=== PATIENT | female | born 1960 | race Caucasian/White ===

== ENCOUNTER 2018-07-14 10:22 | Emergency (ER) | payer OTHER ==
[~2018-07-14] VITALS: Ht 170.2 cm; Wt 117.9 kg
--- OUTSIDE RECORDS SUMMARY | ~2018-07-14 | XMS | Encounter Summary ---
Demographics + + + | Address | [address] | | | [place] [address] | + + + | Home Phone | | + + + | Preferred Language | Unknown | + + + | Marital Status | | + + + | Hindu Affiliation | Unknown | + + + | Race | Unknown | + + + | Ethnic Group | Unknown | + + + Author + + + | Author | [facility] | + + + | Organization | [facility] | + + + | Address | Unknown | + + + | Phone | Unavailable | + + + Support + + + + + | Name | Relationship | Address | Phone | + + + + + | Arden Causey | ECON | [address] | | | | | [place] | | | | | [address] | | + + + + + Care Team Providers + +------+ + | Care Data Services Developer Name | Role | Phone | + +------+ + | Evan Degroot | PCP | | + +------+ + Reason for Visit + + + | Reason | Comments | + + + | Medication Refill | | + + + Encounter Details +--------+--------+ + + + | Date | Type | Department | Care Team | Description | +--------+--------+ + + + | 05/12/ | Refill | [facility] [place] | Jami Perez MA | Medication Refill | | 2019 | | [facility] [place] | | | | | | [address] [facility] [address] | | | | | | [facility] [address] | | | | | | [place] [address] | | | | | | [phone] | | | +--------+--------+ + + + Social History + + + +--------+ + | Tobacco Use | Types | Packs/Day | Years | Date | | | | | Used | | + + + +--------+ + | Former Smoker | Cigarettes | 0.75 | 5 | Quit: 03/10/1994 | + + + +--------+ + + +---+---+---+ | Smokeless Tobacco: | | | | | Never Used | | | | + +---+---+---+ + + +---------+ + | Alcohol Use | Drinks/We | oz/Week | Comments | | | ek | | | + + +---------+ + | No | 0 | 0.0 | rarely | | | Standard | | | | | drinks or | | | | | | | | | | equivalen | | | | | t | | | + + +---------+ + + + + | Sex Assigned at | Date Recorded | | | | + + + | Not on file | | + + + as of this encounter Plan of Treatment Not on fileas of this encounter Visit Diagnoses Not on filein this encounter"
--- OUTSIDE RECORDS SUMMARY | ~2018-07-14 | XMS | Clinical Summary ---
Demographics + + + | Address | [address] | | | [place] [address] | + + + | Home Phone | | + + + | Preferred Language | Unknown | + + + | Marital Status | | + + + | Confucianism Affiliation | Unknown | + + + | Race | Unknown | + + + | Ethnic Group | Unknown | + + + Author + + + | Author | [facility] | | | and [place] | + + + | Organization | [facility] | | | and [place] | + + + | Address | Unknown | + + + | Phone | Unavailable | + + + Support + + + + + | Name | Relationship | Address | Phone | + + + + + | Arden Causey | ECON | [address] | | | | | [place] | | | | | [address] | | + + + + + Care Team Providers + +------+ + | Care Carton Making Machine Operator Name | Role | Phone | + +------+ + | Evan Degroot NP | PP | | + +------+ + Allergies + + + + + + | Active Allergy | Reactions | Severity | Noted | Comments | | | | | Date | | + + + + + + | Adhesive & Tape | Rash | Low | 08/28/19 | Rash & blisters | | | | | 17 | from ECG electrodes | + + + + + + | Latex | Sensitivity | | 01/02/20 | | | | | | 17 | | + + + + + + | Lisinopril | Other (See Comments) | Low | 08/05/19 | Cough | | | | | 13 | | + + + + + + Medications + + + +---------+------+------+-------+ | Medication | Sig | Dispensed | Refills | Star | End | Statu | | | | | | t | Date | s | | | | | | Date | | | + + + +---------+------+------+-------+ | atorvaSTATin | Take 80 mg by mouth | | 0 | | | Activ | | (LIPITOR) 80 MG | Daily. | | | | | e | | tablet | | | | | | | + + + +---------+------+------+-------+ | nitroglycerin | Place 0.4 mg under | | 0 | | | Activ | | (NITROSTAT) 0.4 mg | the tongue every 5 | | | | | e | | SL tablet | minutes as needed. | | | | | | + + + +---------+------+------+-------+ | metoprolol | Take 25 mg by mouth | | 0 | | | Activ | | tartrate (LOPRESSOR) | 2 times daily. | | | | | e | | 25 mg tablet | | | | | | | + + + +---------+------+------+-------+ | levothyroxine | Take 100 mcg by | | 0 | | | Activ | | (SYNTHROID, | mouth every morning | | | | | e | | LEVOTHROID) 100 mcg | (before breakfast). | | | | | | | tablet | | | | | | | + + + +---------+------+------+-------+ | aspirin 81 mg EC | Take 81 mg by mouth | | 0 | | | Activ | | tablet | Daily. | | | | | e | + + + +---------+------+------+-------+ | clopidogrel | Take 75 mg by mouth | | 0 | | | Activ | | (PLAVIX) 75 mg | Daily. | | | | | e | | tablet | | | | | | | + + + +---------+------+------+-------+ Active Problems + + + | Problem | Noted Date | + + + | Sleep apnea - No CPAP use | 08/28/2016 | + + + + + | Overview: no CPAP | + + + + + | Hemorrhage of gastrointestinal tract, unspecified | 08/27/2016 | + + + | H/O Hysterectomy | 08/27/2016 | + + + | H/O Coronary artery STENT placement | 08/27/2016 | + + + | H/O Coronary angiogram | 08/27/2016 | + + + | Beta Jennifer - Daily Use | 08/27/2016 | + + + | Anticoagulant long-term use - PLAVIX | 08/27/2016 | + + + | Hypertension | | + + + | Shortness of breath | | + + + | Hypothyroidism - on Replacement Therapy | | + + + | Sedative, hypnotic or anxiolytic dependence, unspecified | | + + + + + | Overview: ICD-10 Record update | + + + +---+ | Dysmetabolic syndrome X | | + +---+ | Depressive disorder, not elsewhere classified | | + +---+ + + | Overview: REBA [id number] R2 | + + + +---+ | Gastro-esophageal reflux GERD | | + +---+ | 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 | | + +---+ + + | Overview: ICD-10 Record update | + + + +---+ | Other and unspecified hyperlipidemia | | + +---+ | Class II, BMI 35-39.9 | | + +---+ + + | Overview: REBA [id number] Decision | + + + +---+ | Lumbago | | + +---+ | Osteoarthrosis, unspecified whether generalized or localized, | | | lower leg | | + +---+ + + | Overview: ICD-10 Record update | | Problem list shift manager utility | + + + +---+ | Coronary atherosclerosis of unspecified type of vessel, [place] or | | | graft | | + +---+ + + | Overview: ICD-10 Record update | + + + +---+ | CAD (coronary artery disease) | | + +---+ + + | Overview: S/P Percutaneous Transluminal Coronary Angioplasty | | and Stents- Dr. England 10/09/2005L 10/20/06, LVEF 65%Stress | | 06/07/08, LVEF by gated SPECT 68%[facility] 06/13/08, LVEF 65%ECHO | | 07/28/12 LVEF 70% | |ECHO 07/28/12 LVEF 70% | + + Family History + +-------+ + + | Relation | Name | Status | Comments | + +-------+ + + | | Melissa | Alive | | + +-------+ + + | | Scott | Alive | | + +-------+ + + | Father | | | | + +-------+ + + | Mother | | | | + +-------+ + + | Sister | Meghan | Alive | | + +-------+ + + | Sister | Renetta | Alive | | + +-------+ + + Social History + +-------+ +--------+ + | Tobacco Use | Types | Packs/Day | Years | Date | | | | | Used | | + +-------+ +--------+ + | Former Smoker | | 0.5 | | Quit: 03/10/1996 | + +-------+ +--------+ + + +---+---+---+ | Smokeless Tobacco: | | | | | Never Used | | | | + +---+---+---+ + + | Comments: smoked off and on | + + + + +---------+ + | Alcohol Use | Drinks/We | oz/Week | Comments | | | ek | | | + + +---------+ + | Yes | | | every 3-4 months | + + +---------+ + + + + | Sex Assigned at | Date Recorded | | | | + + + | Not on file | | + + + + + + + | Job Start Date | Occupation | Industry | + + + + | Not on file | Not on file | Not on file | + + + + + + + + | Travel History | Travel Start | Travel End | + + + + + + | No recent travel history available. | + + Last Filed Vital Signs + + + + | Vital Sign | Reading | Time Taken | + + + + | Blood Pressure | 115/67 | 01/01/2017 0936 PDT | + + + + | Pulse | 71 | 01/01/2017935 PDT | + + + + | Temperature | 36.3 C (97.3 F) | 01/01/2017908 PDT | + + + + | Respiratory Rate | 16 | 01/01/2017935 PDT | + + + + | Oxygen Saturation | 100% | 01/01/2017935 PDT | + + + + | Inhaled Oxygen | - | - | | Concentration | | | + + + + | Weight | 118 kg (260 lb 2.3 | 01/01/2017730 PDT | | | oz) | | + + + + | Height | 170.2 cm (5' 7") | 01/01/2017730 PDT | + + + + | Body Mass Index | 40.74 | 01/01/2017730 PDT | + + + + Plan of Treatment + + + + + | Health Maintenance | Due Date | Last Done | Comments | + + + + + | Hepatitis C | | | | | Screening | 9 | | | + + + + + | Vaccine: | | | | | Dtap/Tdap/Td (1 - | 8 | | | | Tdap) | | | | + + + + + | Vaccine: | | | | | Pneumococcal 19-64 | 8 | | | | (PPSV23 only) Medium | | | | | Risk (1 of 1 - | | | | | PPSV23) | | | | + + + + + | Breast Cancer | | | | | Screening (Ages | 9 | | | | 50-74) | | | | + + + + + | Colorectal Cancer | | | | | Screening | 9 | | | | (Colonoscopy) | | | | + + + + + | Vaccine: Zoster (1 | | | | | of 2) | 9 | | | + + + + + | Vaccine: Influenza | | | | | (Season Ended) | 9 | | | + + + + + Results Not on filefrom Last 3 Months Insurance +---------+--------+ +--------+ +---------+--------+ | Payer | Benefi | Subscriber | Effect | Phone | Address | Type | | | t Plan | ID | sadia | | | | | | / | | Dates | | | | | | Group | | | | | | +---------+--------+ +--------+ +---------+--------+ | | [employer] | [id number] | 03/10/19 | [phone] | | Indemn | | | E WEST | | 18-Pre | 0 | | ity | | | HNFS | | sent | | | | +---------+--------+ +--------+ +---------+--------+ + +--------+ +--------+ + + | Guarantor Name | Accoun | Relation to | Date | Phone | Billing Address | | | t Type | Patient | of | | | | | | | | | | + +--------+ +--------+ + + | Alejandra Causey | Person | Self [birth year] | [phone] | | [address] | | [phone] | [phone] | [place] | | | [place] | | | [address] (Home) | [address] | + +--------+ +--------+ + + Advance Directives Patient has advance care planning documents on file. For more information, please contact:[facility] [place] [address]
--- OUTSIDE RECORDS SUMMARY | ~2018-07-14 | XMS | Clinical Summary ---
Demographics + + + | Address | [address] | | | [place] [address] | + + + | Home Phone | | + + + | Preferred Language | Unknown | + + + | Marital Status | | + + + | Hinduism Affiliation | Unknown | + + + | Race | Unknown | + + + | Ethnic Group | Unknown | + + + Author + + + | Author | [facility] | | | and [place] | + + + | Organization | [facility] | | | and [...] [place] | | | | | [address] | | + + + + + Care Team Providers + +------+ + | Care Coat Hanger Shaper Machine Operator Name | Role | Phone [...] 08/27/2016 | + + + | Beta Jenniefr - Daily Use | 08/27/2016 | + [...] + +---+ + + | Overview: REBA [id number] R2 | + + + +---+ | Gastro-esophageal reflux GERD | | + +---+ | 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 | | + +---+ + + | Overview: ICD-10 Record update | + + + +---+ | Other and unspecified hyperlipidemia | | + +---+ | Class II, BMI 35-39.9 | | + +---+ + + | Overview: REBA [id number] Decision | + + + +---+ | Lumbago | | + +---+ | Osteoarthrosis, unspecified whether generalized or localized, | | | lower leg | | + +---+ + + | Overview: ICD-10 Record update | | Problem list senior care provider utility | + + + +---+ | Coronary atherosclerosis of unspecified type of vessel, [place] or | | | graft | | + +---+ + + | Overview: ICD-10 Record update | + + + +---+ | CAD (coronary artery disease) | | + +---+ + + | Overview: S/P Percutaneous Transluminal Coronary Angioplasty | | and Stents- Dr. England 10/09/2005L 10/20/06, LVEF 65%Stress | | 06/07/08, LVEF by gated SPECT 68%[facility] 06/13/08, LVEF 65%ECHO | | 07/28/12 [...] +---------+--------+ +--------+ +---------+--------+ | | [employer] | [id number] | 03/10/19 | [phone] | | Indemn [...] [place] | | | [address] (Home) | [address] | + +--------+ +--------+ + + Advance Directives Patient has advance care planning documents on file. For more information, please contact:[facility] [place] [address]
--- OUTSIDE RECORDS SUMMARY | ~2018-07-14 | XMS | Encounter Summary ---
Demographics + + + | Address | [address] | | | [place] [address] | + + + | Home Phone | | + + + | Preferred Language | Unknown | + + + | Marital Status | | + + + | Samaritan Affiliation | Unknown | + + + | Race | Unknown | + + + | Ethnic Group | Unknown | + + + Author + + + | Author | [facility] | + + + | Organization | [facility] | + + + | Address | Unknown | + + + | Phone | Unavailable | + + + Support + + + + + | Name | Relationship | Address | Phone | + + + + + | Arden Causey | ECON | [address] | | | | | [place] | | | | | [address] | | + + + + + Care Team Providers + +------+ + | Care Construction Worker Name | Role | Phone | + [...] + | 05/12/ | Refill | [facility] [place] | Jami Perez MA | Medication Refill | | 2019 | | [facility] [place] | | | | | | [address] [facility] [address] | | | | | | [facility] [address] | | | | | | [place] [address] | | | | | | [phone] | | | +--------+--------+ + + + [...]
--- OUTSIDE RECORDS SUMMARY | ~2018-07-14 | XMS ---
Demographics + + + | Address | [address] | | | [place] [address] | + + + | Preferred Language | Unknown | + + + | Marital Status | Unknown | + + + | Scientology Affiliation | Unknown | + + + | Race | Unknown | + + + | Ethnic Group | Unknown | + + + Author + + + | Author | [facility] | + + + | Organization | [facility] | + + + | Address | [address] | | | [place] [address] | + + + | Phone | | + + + Care Team Providers + + + + | Care Buffer Chrome Name | Role | Phone | + + + + Unavailable | Unavailable | + + + + PROBLEMS +---------+ + + +--------+ + + | Type | Condition | ICD9-CM | [id number] | Onset | Condition | SNOMED | | | | Code | Code | Dates | Status | Code | +---------+ + + +--------+ + + | Problem | Cellulitis | 682.6 | | | Active | 73314185 | | | of knee | | | | | | +---------+ + + +--------+ + + | Problem | 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.39 | | | Active | 89670704 | | | tsiha | | | | | | | | disease | | | | | | +---------+ + + +--------+ + + | Problem | Cholelithi | 574.20 | | | Active | 34417961 | | | asis | | | | | | | | without | | | | | | | | obstructio | | | | | | | | n | | | | | | +---------+ + + +--------+ + + | Problem | Gastrointe | | K92.2 | | Active | 32635660 | | | stinal | | | | | | | | hemorrhage | | | | | | | | , | | | | | | | | unspecifie | | | | | | | | d | | | | | | +---------+ + + +--------+ + + | Problem | Contusion | 924.11 | | | Active | 69854346 | | | of knee | | | | | | +---------+ + + +--------+ + + | Problem | Hematochez | K92.1 | | | Active | [id number] | | | ia | | | | | | +---------+ + + +--------+ + + | Problem | Coronary | | I25.10 | | Active | 10533990 | | | artery | | | | | | | | disease | | | | | | +---------+ + + +--------+ + + | Problem | Hypothyroi | | E03.9 | | Active | 22105073 | | | dism | | | | | | +---------+ + + +--------+ + + | Problem | Hyperlipid | | E78.5 | | Active | 54464874 | | | emia | | | | | | +---------+ + + +--------+ + + | Problem | Hypertensi | | I10 | | Active | 75937873 | | | on | | | | | | +---------+ + + +--------+ + + | Problem | Status | | Z95.5 | | Active | [id number] | | | post | | | | | | | | coronary | | | | | | | | artery | | | | | | | | stent | | | | | | | | placement | | | | | | +---------+ + + +--------+ + + ALLERGIES + + + + +--------+ | Substance | Reaction | Event Type | Date | Status | + + + + +--------+ | Lisinopril | Cough | Drug Allergy | Aug, | Active | + + + + +--------+ | Kiwi | tight throat | Non Drug | Aug, | Active | | | | Allergy | | | + + + + +--------+ SOCIAL HISTORY No smoking Hx information available PLAN OF CARE + +---------+ | Activity | Details | + +---------+ +---+ | | +---+ + + + | Follow Up | 3 Months Reason:null | + + + VITAL SIGNS + + + + | Height | 66 in | 2016-08-15 | + + + + | Weight | 243.0 lbs | 2016-08-15 | + + + + | BMI | 39.22 kg/m2 | 2016-08-15 | + + + + | Temperature | 98.5 degrees Fahrenheit | 2016-08-15 | + + + + | Heart Rate | 70 /min | 2016-08-15 | + + + + | Blood pressure systolic | 127 mm Hg | 2016-08-15 | + + + + | Blood pressure diastolic | 70 mm Hg | 2016-08-15 | + + + + MEDICATIONS + + + + + + + +--------+ | Medicati | Instruct | Dosage | Frequenc | Start | End Date | Duration | Status | | on | ions | | y | Date | | | | + + + + + + + +--------+ | Aspirin | Orally | 1 tablet | 12h | | | 30 | Active | | 81 MG | BID | | | | | day(s) | | + + + + + + + +--------+ | Plavix | Orally | 1 tablet | 24h | | | | Active | | 75 MG | Once a | | | | | | | | | day | | | | | | | + + + + + + + +--------+ | Lipitor | Orally | 1 tablet | 24h | | | | Active | | 80 MG | Once a | | | | | | | | | day | | | | | | | + + + + + + + +--------+ | Levothyr | Orally q | 1 tablet | | 01 Nov, | | 30 | Active | | oxine | AM on | | | 2016 | | day(s) | | | Sodium | empty | | | | | | | | 100 MCG | stomach | | | | | | | + + + + + + + +--------+ | Omeprazo | Orally | 1 | | | | 30 days | Active | | le 20 mg | Once a | capsule | | | | | | | | day PRN | | | | | | | + + + + + + + +--------+ | Metoprol | Orally | 1 tablet | 12h | | | | Active | | ol | Twice a | | | | | | | | Tartrate | day | | | | | | | | 25 MG | | | | | | | | + + + + + + + +--------+ RESULTS No Results PROCEDURES + + + + + | Procedure | Date Ordered | Related Diagnosis | Body Site | + + + + + | Est Level IV | August 15, 2016 | | | | Extended | | | | + + + + + | [facility] MED/CURRENT | August 15, 2016 | | | | MED MERGE | | | | + + + + + | DOC MEDS VERIFIED | August 15, 2016 | | | | W/PT OR RE | | | | + + + + + IMMUNIZATIONS No Known Immunizations"
--- OUTSIDE RECORDS SUMMARY | ~2018-07-14 | XMS | Clinical Summary ---
Demographics + + + | Address | [address] | | | [place] [address] | + + + | Home Phone | | + + + | Preferred Language | Unknown | + + + | Marital Status | | + + + | Roman Catholic Affiliation | Unknown | + + + | Race | Unknown | + + + | Ethnic Group | Unknown | + + + Author + + + | Author | [facility] | + + + | Organization | [facility] | + + + | Address | Unknown | + + + | Phone | Unavailable | + + + Support + + + + + | Name | Relationship | Address | Phone | + + + + + | Arden Causey | ECON | [address] | | | | | [place] | | | | | [address] | | + + + + + Care Team Providers + +------+ + | Care Poured Concrete Wall Technician Name | Role | Phone | + +------+ + | Evan Degroot | PP | | + +------+ + Allergies + + + + + + | Active Allergy | Reactions | Severity | Noted | Comments | | | | | Date | | + + + + + + | Adhesive Tape | Rash | Medium | 08/28/19 | Rash & blisters | | | | | 17 | from ECG electrodes | + + + + + + | Kiwi Extract | Itching | Medium | 08/08/19 | | | | | | 18 | | + + + + + + | Latex | Rash | Medium | 01/02/20 | | | | | | 17 | | + + + + + + | Lisinopril | Cough | Low | 04/23/19 | Cough | | | | | 17 | | + + + + + + Current Medications + + +--------+---------+------+------+-------+ | Prescription | Sig. | Disp. | Refills | Star | End | Statu | | | | | | t | Date | s | | | | | | Date | | | + + +--------+---------+------+------+-------+ | oxybutynin | Take 5 mg by mouth | | | | | Activ | | (DITROPAN) 5 MG | daily. | | | | | e | | tablet | | | | | | | + + +--------+---------+------+------+-------+ | pantoprazole | Take 20 mg by mouth | | | | | Activ | | (PROTONIX) 20 MG | 2 (two) times daily. | | | | | e | | tablet | | | | | | | + + +--------+---------+------+------+-------+ | clopidogrel | Take 1 tablet by | 30 | 11 | 07/10 | 07/10 | Activ | | (PLAVIX) 75 MG | mouth daily. | tablet | | 03/29 | 03/29 | e | | tabletIndications: | | | | 18 | 19 | | | Coronary artery | | | | | | | | disease involving | | | | | | | | [place] coronary | | | | | | | | artery of [place] | | | | | | | | heart with angina | | | | | | | | pectoris ([facility]) | | | | | | | + + +--------+---------+------+------+-------+ | nitroGLYCERIN | Place 1 tablet under | 20 | 3 | 07/10 | 07/10 | Activ | | (NITROSTAT) 0.4 MG | the tongue every 5 | tablet | | 03/29 | 03/29 | e | | SL tablet | (five) minutes as | | | 18 | 19 | | | | needed for Chest | | | | | | | | pain. | | | | | | + + +--------+---------+------+------+-------+ | aspirin 81 MG EC | Take 81 mg by mouth | | | | | Activ | | tablet | daily with | | | | | e | | | breakfast. | | | | | | + + +--------+---------+------+------+-------+ | levothyroxine | Take 137 mcg by | | | | | Activ | | (SYNTHROID) 137 MCG | mouth every morning | | | | | e | | tablet | before breakfast. | | | | | | + + +--------+---------+------+------+-------+ | metoprolol | Take 0.5 tablets by | 30 | 11 | 03/0 | | Activ | | (LOPRESSOR) 25 MG | mouth 2 (two) times | tablet | | 07/27 | | e | | tablet | daily. | | | 19 | | | + + +--------+---------+------+------+-------+ | atorvastatin | Take 1 tablet by | 30 | 11 | 03/0 | 03/0 | Activ | | (LIPITOR) 80 MG | mouth nightly. | tablet | | /20 | 20 | e | | tablet | | | | 19 | 20 | | + + +--------+---------+------+------+-------+ Active Problems + + + | Problem | Noted Date | + + + | History of GI bleed | 08/08/2017 | + + + | Mild pulmonary hypertension (HCC) | 08/08/2017 | + + + | History of non-ST elevation myocardial infarction (NSTEMI) | 08/07/2017 | + + + | History of PTCA | 08/07/2017 | + + + | Needs sleep apnea assessment | 08/07/2017 | + + + | Current use of beta luis | 08/27/2016 | + + + | Hypertension goal BP (blood pressure) < 130/80 | 04/23/2016 | + + + | Unspecified hypothyroidism | 04/23/2016 | + + + | Mixed hyperlipidemia | 04/23/2016 | + + + | CAD (coronary artery disease) | 04/23/2016 | + + + Resolved Problems + + + + | Problem | Noted | Resolved | | | Date | Date | + + + + | Anticoagulant long-term use | 08/28/19 | | | | 17 | 8 | + + + + | Chest pain, unspecified | 04/23/19 | | | | 17 | 8 | + + + + | NSTEMI (non-ST elevated myocardial infarction) | 04/23/19 | | | | 17 | 8 | + + + + Encounters +--------+--------+ + + + | Date | Type | Specialty | Care Team | Description | +--------+--------+ + + + | 05/12/ | Refill | | Jami Perez MA | Medication Refill | | 2018 | | | | | +--------+--------+ + + + from Last 3 Months Family History + + +------+ + | Medical History | Relation | Name | Comments | + + +------+ + | Hypertension | Brother | | | + + +------+ + | Eczema | Father | | | + + +------+ + | Cancer | Mother | | | + + +------+ + | Cancer | Sister | | | + + +------+ + + +------+--------+ + | Relation | Name | Status | Comments | + +------+--------+ + | Brother | | | | + +------+--------+ + | Father | | | | + +------+--------+ + | Mother | | | | + +------+--------+ + | Sister | | | | + +------+--------+ + Social History + + + +--------+ [...] on file | | + + + Last Filed Vital Signs + + + + | Vital Sign | Reading | Time Taken | + + + + | Blood Pressure | 110/66 | 02/05/2018 10:01 AM PST | + + + + | Pulse | 65 | 02/05/2018 10:01 AM PST | + + + + | Temperature | 36.8 C (98.2 F) | 04/24/2016 8:10 AM PST | + + + + | Respiratory Rate | 18 | 02/05/2018 10:01 AM PST | + + + + | Oxygen Saturation | 100% | 02/05/2018 10:01 AM PST | + + + + | Inhaled Oxygen | - | - | | Concentration | | | + + + + | Weight | 119.9 kg (264 lb 4.8 | 02/05/2018 10:01 AM PST | | | oz) | | + + + + | Height | 170.2 cm (5' 7") | 02/05/2018 10:01 AM PST | + + + + | Body Mass Index | 41.4 | 02/05/2018 10:01 AM PST | + + + + Plan of [...] | + + + + + | Cervical Cancer | | | | | Screening (Pap) | 9 | | | + + + + + | Breast Cancer | | | | | Screening | 9 | | | | (Mammogram) | | | | + + + + + | Colon Cancer | | | | | Screening [...] | | + + + + + Implants + +-------+-------+ +--------+--------+--------+ | Implanted | Type | Area | Manufacture | Device | Expira | Model | | | | | r | | tion | / | | | | | | Identi | Date | Serial | | | | | | fier | | / Lot | + +-------+-------+ +--------+--------+--------+ | Promus Premier | Stent | Heart | [place] | | | / | | [id number]: Qty: | | | SCIENTIFIC | | | /[id number] | | 1 on 04/23/2016 by Julia, | | | ISAAC | | | 077 | | MD Tj | | | | | | | + +-------+-------+ +--------+--------+--------+ Results Not on filefrom Last 3 Months Insurance + +--------+ +------+-------+ + | Payer | Benefi | Subscriber | Type | Phone | Address | | | t Plan | ID | | | | | | / | | | | | | | Group | | | | | + +--------+ +------+-------+ + | DOMINGA - RASHEL - | RIKA | [id number] | | | [address] [address] | | | [place] | | | | [place], [place] | | | [place] | | | | [address] | | | [place] | | | | | | | NFS | | | | | + +--------+ +------+-------+ + + +--------+ +--------+ + + | Guarantor Name | Accoun | Relation to | Date | Phone | Billing Address | | | t Type | Patient | of | | | | | | | | | | + +--------+ +--------+ + + | ALEJANDRA CAUSEY | Person | Self [birth year] | Home: | [facility] | | | al/Fam | | 1961 | [phone] | [place] | | | [place] | | | [phone] | + +--------+ +--------+ + +
--- OUTSIDE RECORDS SUMMARY | ~2018-07-14 | XMS | Clinical Summary ---
Demographics + + + | Address | [address] | | | [place] [address] | + + + | Home Phone | | + + + | Preferred Language | Unknown | + + + | Marital Status | | + + + | Episcopalian Affiliation | Unknown | + + + | Race | Unknown | + + + | Ethnic Group | Unknown | + + + Author + + + | Author | [facility] | + + + | Organization | [facility] | + + + | Address | Unknown | + + + | Phone | Unavailable | + + + Support + + + + + | Name | Relationship | Address | Phone | + + + + + | Arden Causey | ECON | [address] | | | | | [place] | | | | | [address] | | + + + + + Care Team Providers + +------+ + | Care Barrel Header Name | Role | Phone | + [...] | | | | | | | [place] coronary | | | | | | | | artery of [place] | | | | | | | | heart with angina | | | | | | | | pectoris ([facility]) | | | | | | | [...] | | | SCIENTIFIC | | | /[id number] | | 1 on 04/23/2016 by Julia, [...] DOMINGA - RASHEL - | RIKA | [id number] | | | [address] [address] | | | [place] | | | | [place], [place] | | | [place] | | | | [address] | | | [place] | | | [...] | Self | [birth year] | Home: | [facility] | | | al/Fam | | 1961 | [phone] | [place] | | | [place] | | | [phone] | [phone] | + +--------+ +--------+ + +
[~2018-07-14 10:22] MED LIST: ASPIRIN EC81 MG PO; ATORVASTATIN CA80 MG PO; CLOPIDOGREL75 MG PO; CLOTRIM ANTIFUN15 GM TOP; CYCLOBENZAPRINE10 MG PO; DOXYCYCLINE MO100 MG PO; EFFIENT10 MG PO; LEVOTHYROXINE100 MCG PO; METOPROLOL TART25 MG PO; MUPIROCIN15 GM TOP; NITROGLYCERIN0.4 MG SL; OMEPRAZOLE20 MG PO; SIMVASTATIN20 MG PO; TETRACYCLINE H250 MG PO
[2018-07-14] MEDS ORDERED: OXYBUTYNIN CHLOR5 MG PO (10:39)
== END 2018-07-14 15:49 | disposition home or self-care (01) ==
LOC: ED 10:22
DX: R10.10 Upper abdominal pain, unspecified (principal); Z95.5 Presence of coronary angioplasty implant and graft; I10 Essential (primary) hypertension; Z87.891 Personal history of nicotine dependence; Z90.710 Acquired absence of both cervix and uterus; Z98.84 Bariatric surgery status; Z90.49 Acquired absence of other specified parts of digestive tract; Z91.018 Allergy to other foods; Z88.8 Allergy status to other drugs, medicaments and biological substances; Z79.899 Other long term (current) drug therapy
CPT/HCPCS: 71045; 74177; 80053; 81001; 83690; 85025; 96361; 99284-25; C9113; J7030; Q9967

== ENCOUNTER 2019-06-16 10:45 | Day surgery (SDC) | payer OTHER ==
[~2019-06-16] VITALS: Ht 170.2 cm; Wt 49.9 kg
[~2019-06-16 10:45] MED LIST changes: +OXYBUTYNIN CHLOR5 MG PO
--- NOTE | 2019-06-16 13:36 | NUR ---
06/16/19 1336 Ellie Turner 4955 PT ARRIVED IN PACU SLEEPY WITH NO C/O'S. 1315 SITTING UP IN BED SIPPING ON WATER. 1325 SITTING AT SIDE OF BED GETTING DRESSED. DC INSTRUCTIONS GIVEN TO PT. 1335 LEFT VIA W/C. INSTRUCTIONS GIVEN TO SPOUSE AT CAR.
--- NOTE | 2019-06-18 14:48 | PATH ---
[facility] [address] [place], [place] [address] Signed SPECIMEN(S): A BONE MARROW - CORE SPECIMEN(S): B BONE MARROW - ASPIRATION SPECIMEN(S): C COMP FLOW CYTOMETRY, BM EDTA CLINICAL HISTORY: 59-year-old woman with pancytopenia. D64.9 (anemia, unspecified) DIAGNOSIS SUMMARY: A. Peripheral blood - Normochromic normocytic anemia. B. Bone marrow, left, aspirate smear and core biopsy: - Normocellular bone marrow with mild patchy reticulin fibrosis. - See Diagnostic Comment. DIAGNOSTIC COMMENT: The provided patient history of pancytopenia is noted. Evaluation of this bone marrow specimen reveals a normocellular bone marrow with an estimated overall cellularity of 40%. No diagnostic morphologic evidence of myelodysplasia is identified, and blasts are not increased. There is no evidence of lymphoma or plasma cell neoplasm. Per the accompanying CBC data, the patient currently has a normochromic normocytic anemia. Additional considerations for this patient's cytopenias include nutritional deficiencies, immune disorders, infection and drug/toxin effect. Cytogenetic analysis and MDS FISH analysis are pending, and the results will be issued by addendum. AIC:slh:caw:C2NR PERIPHERAL BLOOD: HEMOGRAM ([facility], 06/16/2019): WBC 5.9 K/uL, RBC 3.30 M/uL, HGB 10.0 g/dL, HCT 30.2%, MCV 91.3 fL, MCH 30 pg, MCHC 33 g/dL, RDW 15.4%, PLT 298 K/uL. MANUAL DIFFERENTIAL COUNT: Segmented neutrophils 60%, band neutrophils 1%, lymphocytes 31%, monocytes 5%, eosinophils 2%, basophils 1%. The red blood cells are decreased in number and are normochromic and normocytic with mild anisocytosis. Scattered ovalocytes and microcytes are present. The white blood cells are present in normal number and demonstrate a few scattered lymphocytes with reactive changes. Circulating blasts are not identified. Platelets are present in normal number and morphology. BONE MARROW: PATIENT NAME: KD CAMPO PATHOLOGY DATE OF : 56 REPORT #: [id number] PHYSICIAN: ESTIVEN BROWNE PCP: DAGO ROBERTSON REPORT IS CONFIDENTIAL AND NOT TO BE RELEASED WITHOUT AUTHORIZATION [facility] [address] [place], [place] [address] Signed BONE MARROW ASPIRATE SMEARS: The aspirate smears contain adequate cellularity for evaluation. Many of the particles present are hypocellular. The scattered erythroid precursors show normoblastic maturation without significant nuclear irregularities. The granulocytic precursors mature to segmented forms without overt dyspoiesis. A few hypogranular precursors are identified. Blasts are not increased. The megakaryocytes demonstrate variable morphology and are unremarkable. BONE MARROW DIFFERENTIAL COUNT: Blasts 1%, promyelocytes 2%, myelocytes 17%, metamyelocytes 12%, band neutrophils 10%, segmented neutrophils 12%, monocytes 6%, eosinophils 4%, lymphocytes 7%, plasma cells 1%, erythroid precursors 28%. Vuotjzg-go-ccyfafvep ratio 2.3:1. BONE MARROW CORE BIOPSY/ASPIRATE CELL BLOCK: The core biopsy demonstrates a normocellular bone marrow with an estimated overall cellularity of 40%. The megakaryocytes demonstrate variable morphology and show no significant clustering. The clot section contains scattered variably cellular particles ranging from 10-50% and with otherwise similar findings. SPECIAL STAINS: - Iron (aspirate smear): No particles present for evaluation; negative for ring sideroblasts among a few scattered erythroid precursors. - Iron (block B1): Negative. - Reticulin (block A1): Patchy mild reticulin fibrosis, MF-0 to MF-1. The special stain controls react appropriately. IMMUNOHISTOCHEMICAL STAINS (block A1): - CD117: Highlight scattered mast cells without significant clustering. - CD71: Highlights erythroid precursors with preserved colony architecture. - Factor VIII: Highlights a normal number of megakaryocytes within scattered small clusters. - CD20: Highlights a few scattered B-cells without significant increase. - CD3: Scattered and aggregated T-cells positive. - CD138: Highlights mildly increased plasma cells, estimated 5-7%. IN SITU HYBRIDIZATION (block A1): - [place]: Highlights scattered positive cells in a polytypic pattern. - Lambda: Highlights scattered positive cells in a polytypic pattern. AIC:slh:caw FLOW CYTOMETRY: Bone marrow, flow cytometry: - No increase in KJ20-kgtukhlv blasts. PATIENT NAME: KD CAMPO PATHOLOGY DATE OF : 56 REPORT #: [id number] PHYSICIAN: ESTIVEN PATHOLOGY PCP: DAGO ROBERTSON REPORT IS CONFIDENTIAL AND NOT TO BE RELEASED WITHOUT AUTHORIZATION [facility] [address] [place], [place] [address] Signed - No monoclonal plasma cell population identified. - No monoclonal B-cell or aberrant T-cell population identified. - See Comment. COMMENT: Flow cytometry of this bone marrow specimen reveals no increase in XD99-ubsipzby blasts or immunophenotypic evidence of a non-Hodgkin lymphoid neoplasm. No monoclonal plasma cell population is identified; however, please note that the plasma cell percentage is typically underestimated by flow cytometry. Final interpretation of these results requires correlation with morphologic and clinical findings. AIC:[facility] FLOW CYTOMETRY ANALYSIS: FLOW DIFFERENTIAL (% Total CD45 vs. SSC gating): Myeloid 71%; Lymphoid 15%; Monocyte 2%; Dim CD45/Blast 0.8%; Plasma Cells 1.5%. Cell Count: 5.4 x 10*3/uL. POPULATION ANALYSIS: BLASTS: Analysis of the dim CD45 gate demonstrates 0.8% myeloblasts by CD34/CD117 and 1.6% hematogones. LYMPHOID CELLS: The lymphocyte gate comprises 15% of total events and includes 86% T-cells with a CD4:CD8 ratio of 1.1:1 and normal dockery T-cell antigen expression. 10% of lymphocytes are B-cells with a kappa:lambda ratio of 1.4:1. The remainders in the lymphoid gate are NK cells. MYELOID CELLS: The myeloid population comprises 71% of the total events. No aberrant immunophenotypic expression is detected. MONOCYTES: The monocyte population comprises 2% of the total events. Monocytes are not increased. No aberrant immunophenotypic expression is detected. PLASMA CELLS: An increased number of plasma cells are observed in the screening gate of CD45 neg-dim/CD38. For this reason, select additional antibodies are run to further characterize the plasma cells. 1.5% polytypic plasma cells are detected (n=763) expressing CD45 DIM-NEG, CD19 DIM (partial), CD38 BR, CD138 DIM and CD56 (minor subset) while negative for CD20. ANTIBODIES USED: KAPPA, LAMBDA, CD20, CD10, CD19, CD23, CD38, FMC7, CD16, CD56, CD8, CD5, CD2, CD4, CD7, CD3,CD14, CD33, CD13, HLADR, CD34, CD117, CD15, cKAPPA, cLAMBDA, CD138, CD45: TOTAL ANTIBODIES USED: 27. DKW FINAL DIAGNOSIS PERFORMED BY: Estefania Mancini MD, Pathologist Jun 17 2019 1:33PM PATIENT NAME: KD CAMPO PATHOLOGY DATE OF : 56 REPORT #: [id number] PHYSICIAN: ESTIVEN PATHOLOGY PCP: DAGO ROBERTSON REPORT IS CONFIDENTIAL AND NOT TO BE RELEASED WITHOUT AUTHORIZATION [facility] [address] [place], [place] [address] Signed CYTOGENETICS: Pending. FISH ANALYSIS: Pending. GROSS DESCRIPTION: A. The specimen, received in formalin, labeled "Marium, bone core," consists of a 0.6 cm hernandez bone core, submitted in (A1) following decalcification in Immunocal for 1.5 hours. B. The specimen, received in formalin, labeled "Marium, clot," consists of a 1.7 x 1 x 0.5 cm aggregate of blood clot, entirely submitted in cassette (B1). tn:DARNELL:sal ADDITIONAL NOTES: Immunohistochemical and/or in situ hybridization studies were performed on this case with the appropriate positive controls that react as expected. This test was developed and its performance characteristics determined by [facility]. It has not been cleared or approved by the U.S. Food and Drug Administration. The FDA has determined that such clearance or approval is not necessary. This test is used for clinical purposes. It should not be regarded as investigational or for research. [facility] is certified under the Clinical Laboratory Improvement Amendments of 1988 (CLIA) as qualified to perform high complexity clinical laboratory testing. In this case, certain antibodies were performed by both immunohistochemistry and flow cytometry analysis because flow cytometry analysis did not fully explain all the light microscopic findings. Immunohistochemistry aided in the analysis. Both methods are deemed medically necessary in this case. This test was developed and its performance characteristics determined by [facility]. It has not been cleared or approved by the US Food and Drug Administration. The FDA does not require this test to go through premarket FDA review. This test is used for clinical purposes. It should not be regarded as investigational or for research. This laboratory is certified under the Clinical Laboratory Improvement Amendments (CLIA) as qualified to perform high complexity clinical laboratory testing. PERFORMING LABORATORY: PATIENT NAME: KD CAMPO PATHOLOGY DATE OF : 56 REPORT #: [id number] PHYSICIAN: ESTIVEN BROWNE PCP: DAGO ROBERTSON REPORT IS CONFIDENTIAL AND NOT TO BE RELEASED WITHOUT AUTHORIZATION [address] [address] Signed Professional interpretation was performed by [facility], [facility], [address] [place] [address] (Cripple Chaser: Deni Carrion M.D.; CLIA#: [id number]). Professional interpretation was performed by [facility], [facility], [address] [place] [address] (Cripple Chaser: Deni Carrion M.D.; IA#: [id number]). IMAGES: [id number]: [id number]: [id number] Diagnostician: Estefania Mancini MD Pathologist Electronically Signed 06/18/2019 Copies: ~ PATIENT NAME: KD CAMPO PATHOLOGY DATE OF : 56 REPORT #: [id number] PHYSICIAN: ESTIVEN PATHOLOGY PCP: DAGO ROBERTSON REPORT IS CONFIDENTIAL AND NOT TO BE RELEASED WITHOUT AUTHORIZATION
== END 2019-06-16 13:35 | disposition home or self-care (01) ==
LOC: DS 10:45 → OPS 10:45 → DS 12:00 → OPS 12:00
PROVIDERS: Specialist
PROC: 079T3ZX Drainage of Bone Marrow, Percutaneous Approach, Diagnostic (ICD-10-PCS; 2019-06-16)
PROC: 07DR3ZX Extraction of Iliac Bone Marrow, Percutaneous Approach, Diagnostic (ICD-10-PCS; principal; 2019-06-16 12:00)
DX: D61.818 Other pancytopenia (principal); D46.9 Myelodysplastic syndrome, unspecified; D75.89 Other specified diseases of blood and blood-forming organs; I25.10 Atherosclerotic heart disease of native coronary artery without angina pectoris; E78.00 Pure hypercholesterolemia, unspecified; E03.9 Hypothyroidism, unspecified; I10 Essential (primary) hypertension; Z79.899 Other long term (current) drug therapy; Z79.02 Long term (current) use of antithrombotics/antiplatelets; Z95.5 Presence of coronary angioplasty implant and graft; Z88.8 Allergy status to other drugs, medicaments and biological substances
CPT/HCPCS: 85025; 99152; 99153; J2250; J3010; J7121

== ENCOUNTER 2019-06-20 15:38 | Emergency (ER) | payer OTHER ==
[~2019-06-20] VITALS: Ht 170.2 cm; Wt 77.3 kg
== END 2019-06-20 15:55 | disposition home or self-care (01) ==
LOC: ED 15:38
DX: Q82.8 Other specified congenital malformations of skin (principal)